=== PATIENT | female | born 1965 | race African-American/Black ===

== ENCOUNTER 2017-03-12 20:48 | Emergency (ER) | payer BC, MEDICAID ==
[~2017-03-12] VITALS: Ht 157.5 cm; Wt 83.9 kg
[2017-03-12] MEDS ORDERED: Norco 5mg/325mg tab PO ONE (21:00)
[2017-03-12 21:05] VITALS: BP 185/98
--- NOTE | 2017-03-12 21:05 | Emergency Room Report ---
History of Present Illness General Chief Complaint: Multiple Trauma/Fall Source: Patient Present Illness HPI At 7 to 7:30 tonight the patient fell down stairs. She jammed her right big toe. The toe swollen and painful at this time. She's not taken any medication so far. She denies a loss of consciousness, hand pain knee pain ankle pain hip pain chest pain. She does have a history of hypertension. Allergies: Coded Allergies: PEANUT (Verified Allergy, Unknown, 03/12/17) Patient History Past Medical History: see triage record Social History Narrative Works for the [employer], Last Menstrual Period: 02/25/17 Now: No Reviewed Nursing Documentation: PMH: Agreed, PSxH: Agreed Nursing Documentation-PMH Hx Hypertension: Yes Review of Systems All Other Systems: negative except mentioned in HPI Physical Exam Vital Signs Date Time Temp Pulse Resp B/P Pulse Ox O2 Delivery O2 Flow Rate FiO2 03/12/17 20:56 98.2 88 15 199/104 99 Room Air Sp02 EP Interpretation: reviewed, normal General Appearance: well appearing, no apparent distress Head: normocephalic, atraumatic Eyes: bilateral eye EOMI, bilateral eye PERRL, bilateral eye normal inspection ENT: hearing grossly normal, normal voice, moist mucus membranes Neck: full range of motion, supple, no bony tend Respiratory: chest non-tender, lungs clear, normal breath sounds, no respiratory distress, speaking full sentences Cardiovascular #1: regular rate, rhythm Gastrointestinal: normal bowel sounds, non tender, soft Musculoskeletal: digits/nails normal, normal range of motion, no calf tenderness, pelvis stable, swelling - R big toe TTP Neurologic: alert, oriented x3, motor strength/tone normal, sensory intact, speech normal, grossly normal Psychiatric: mood/affect normal Skin: no rash, hematoma - big toe R Medical Decision Making Diagnostic Impression: Primary Impression: Toe fracture, right Qualified Codes: S92.424A - Nondisplaced fracture of distal phalanx of right great toe, initial encounter for closed fracture ER Course The patient injured her big toe falling downstairs. Differential includes contusion, fracture and hematoma. X-rays are indicated. In addition the patient be treated with Motrin and [place]. Xray with fracture. Rick tape applied by tech and ortho boot. Neurovasc and position excellent as checked by me. Patient stable for outpatient observation and treatment Other X-Ray Diagnostic Results Other X-Ray Diagnostic Results : X-Ray Ordered: R foot EP Interpretation: Yes Findings: no dislocation, other - fx and sts Number of Views: 3 Last Vital Signs Date Time Temp Pulse Resp B/P Pulse Ox O2 Delivery O2 Flow Rate FiO2 03/12/17 22:25 98.4 96 17 175/96 100 Room Air Status: improved Disposition: HOME, SELF-CARE Condition: Improved Scripts Hydrocodone Bit/Acetaminophen 5-325* (NORCO 5-325*) 1 Each Tablet 1 TAB ORAL Q6H Y for For Pain, #12 TAB 0 Refills Prov: Donavan Green M.D. 03/12/17 Ibuprofen* (MOTRIN*) 600 Mg Tablet 600 MG ORAL Q6H Y for For Pain, #16 TAB Prov: Donavan Green M.D. 03/12/17 Donavan Green M.D. Mar 12, 2017 21:05
[2017-03-12] MEDS ORDERED: IBUPROFEN600 MG ORAL (22:02)
[2017-03-12] MEDS ORDERED: NORCO 5-325 TA1 EACH ORAL (22:02)
[2017-03-12 22:25] VITALS: BP 175/96
--- NOTE | 2017-03-13 11:20 | Diagnostic Imaging Report ---
Indication: TRAUMA, pain status post fall Technique: 3 views right foot Comparison: none Findings: Slight irregularity to the first distal phalanx, doubtful significance but subtle fracture not completely excludable. No other evidence of acute fracture or dislocation. Joint spaces are preserved. There are small plantar calcaneal spurs. Impression: No definite acute bony trauma; cannot completely exclude first distal phalangeal fracture. This agrees with the preliminary interpretation provided by the emergency room physician
== END 2017-03-12 22:25 | disposition home or self-care (01) ==
LOC: EMR 22:09
DX: S92.424A Nondisplaced fracture of distal phalanx of right great toe, initial encounter for closed fracture (principal); W10.9XXA Fall (on) (from) unspecified stairs and steps, initial encounter; Y93.9 Activity, unspecified; Y92.9 Unspecified place or not applicable; Z91.010 Allergy to peanuts; I10 Essential (primary) hypertension
CPT/HCPCS: 99284

== ENCOUNTER 2019-01-22 17:21 | Emergency (ER) | payer MEDICAID, OTHER ==
[~2019-01-22] VITALS: Ht 157.5 cm; Wt 84.8 kg
[~2019-01-22 17:21] MED LIST: IBUPROFEN600 MG ORAL; NORCO 5-325 TA1 EACH ORAL
[2019-01-22 17:34] VITALS: BP 185/99
[2019-01-22] MEDS ORDERED: BENAZEPRIL HCL10 MG ORAL (17:38)
[2019-01-22] MEDS ORDERED: CEPHALEXIN500 MG ORAL (18:13)
[2019-01-22] MEDS ORDERED: BACITRACIN-P28.35 GM TP (18:13)
[2019-01-22] MEDS ORDERED: HYDROCORTISONE30 G2 TP (18:14)
--- NOTE | 2019-01-22 18:14 | Emergency Room Report ---
History of Present Illness General Chief Complaint: Skin Rash/Abscess Source: Patient Present Illness HPI 53-year-old female patient presents the ER complaining of rash on left upper extremity times 1 day. Reports she woke up this morning and noticed pruritic bumps on her left arm. Reports that she saw a bug but does not know if she was bitten by it. Reports she is up-to-date on tetanus vaccinations. Denies fever , chest pain, shortness breath, abdominal pain, vomiting. Denies history of diabetes. Denies any medication for relief of symptoms. Denies other aggravating or relieving factors. Allergies: Coded Allergies: PEANUT (Verified Allergy, Unknown, 03/12/17) Patient History Past Medical History: see triage record Last Menstrual Period: menopause Reviewed Nursing Documentation: PMH: Agreed; PSxH: Agreed Nursing Documentation-PMH Past Medical History: No History, Except For Hx Hypertension: Yes Review of Systems All Other Systems: negative except mentioned in HPI Physical Exam Vital Signs Date Time Temp Pulse Resp B/P (MAP) Pulse Ox O2 Delivery O2 Flow Rate FiO2 01/22/19 17:34 98.1 76 16 185/99 98 Room Air Sp02 EP Interpretation: reviewed, normal General Appearance: well appearing, no apparent distress, alert, GCS 15, non- toxic Head: normocephalic, atraumatic Eyes: bilateral eye normal inspection, bilateral eye PERRL ENT: hearing grossly normal, normal pharynx, no angioedema, normal voice, uvula midline, moist mucus membranes Neck: full range of motion Respiratory: lungs clear, normal breath sounds, no rhonchi, no respiratory distress, no accessory muscle use, no wheezing, speaking full sentences Cardiovascular #1: regular rate, rhythm, no edema Musculoskeletal: back normal, digits/nails normal, gait/station normal, normal range of motion, non-tender Neurologic: alert, oriented x3, responsive, motor strength/tone normal, sensory intact Psychiatric: mood/affect normal Skin: other - Left proximal upper extremity: Erythematous macules and papules with mild edema, no surrounding erythema or edema, no palpable mass, no open wound or drainage, no bite garcia, no red streaking, no lymphedema, excoriations noted Medical Decision Making PA Attestation Dr. Schwartz is my supervising Physician whom patient management has been discussed with. Diagnostic Impression: Primary Impression: Rash and other nonspecific skin eruption ER Course Pt. presents to the ED c/o "bumps" on left arm. Ddx considered but are not limited to atopic dermatitis, bug bite, urticaria, allergic reaction, cellulitis, abscess. Vital signs: are WNL, pt. is afebrile ER COURSE: Physical exam consistent with localized inflammation secondary to likely bug bite. Will cover for possible cellulitis and infection due to patient scratching , will cover with oral abx. Do not scratch, apply cool compresses to affected area. Take Claritin during the day and Benadryl at night for itching symptoms. Followup with PCP and request referral to derm. Wound check in 2-3 days. ER precautions given. DISCHARGE: -Rx given for hydrocortisone cream. Do not apply to face or skin creases. -Rx given for Bacitracin -Rx given for Keflex At this time pt. is stable for d/c to home. Patient resting comfortably, in no acute distress, nontoxic appearing. Care plan and follow up instructions have been discussed with the patient prior to discharge. Patient provided with printed patient care instructions, and any necessary prescriptions. Patient instructed to follow-up with primary care provider in 3 - 5 days. Patient questions asked and answered. Patient reports understanding and agreement to treatment plan. ER precautions given. Patient instructed to return to ER immediately for any new or worsening of symptoms including but not limited to increasing SOB, persistent fever. - Please note that this Emergency Department Report was dictated using [employer] up arranger technology software, occasionally this can lead to erroneous entry secondary to interpretation by the dictation equipment. Last Vital Signs Date Time Temp Pulse Resp B/P (MAP) Pulse Ox O2 Delivery O2 Flow Rate FiO2 01/22/19 17:34 98.1 16 185/99 98 Room Air 01/22/19 17:34 76 Disposition: HOME, SELF-CARE Condition: Stable Scripts Hydrocortisone (Hydrocortisone Cream 2.5%) Y Cream.appl 1 APPLIC TP BID, #28 GM Prov: Edilson Miguel 01/22/19 Cephalexin* (KEFLEX*) 500 Mg Capsule 500 MG ORAL EVERY 12 HOURS, #14 CAP 0 Refills Prov: Edilson Miguel.Reese 01/22/19 Bacitracin/Polymyxin B Sulfate (BACITRACIN-POLYMYXIN OINTMENT) 28.35 Gm Oint...g. 1 APPLIC TP BID, #28 GM Prov: Edilson Miguel 01/22/19 Referrals: [facility]ERR[facility] (PCP) Patient Instructions: Insect Bite, [id number], Rash Additional Instructions: Followup with primary care provider in 3 -5 days. Request referral to dermatology as needed. Do not scratch or itch. Apply cool compresses to affected area. Wash all clothes and bedding. Take medications as directed. Do not apply topical steroid medication to face or skin creases. SE Benadryl drowsiness, do not take prior to drinking, driving, operating heavy machinery. Take Claritin during the day and Benadryl at night for itching symptoms. Patient questions asked and answered. ER precautions given, patient instructed to return to ER immediately for any new or worsening of symptoms. [facility] Edilson Miguel Jan 22, 2019 18:14
[2019-01-22 18:22] VITALS: BP 185/99
--- NOTE | 2019-01-22 18:22 | NUR ---
ER DISCHARGE NOTE: Patient is cleared to be discharged per ERMD, pt is aox4, on room air, with stable vital signs. pt was given dc and prescription instructions, pt was able to verbalize understanding, pt id band removed . pt is able to ambulate with steady gait. pt took all belongings.
== END 2019-01-22 18:22 | disposition home or self-care (01) ==
LOC: EMR 17:57
DX: R21 Rash and other nonspecific skin eruption (principal); I10 Essential (primary) hypertension; Z91.010 Allergy to peanuts
CPT/HCPCS: 99282

== ENCOUNTER 2019-10-05 16:52 | Emergency (ER) | payer OTHER ==
[~2019-10-05] VITALS: Ht 157.5 cm; Wt 85.7 kg
[~2019-10-05 16:52] MED LIST changes: +BACITRACIN-P28.35 GM TP; +BENAZEPRIL HCL10 MG ORAL; +CEPHALEXIN500 MG ORAL; +HYDROCORTISONE30 G2 TP
[2019-10-05] MEDS ORDERED: AMLODIPINE BESY10 MG ORAL (17:10)
[2019-10-05] MEDS ORDERED: HYDROCHLOROTHIA25 MG ORAL (17:10)
[2019-10-05] MEDS ORDERED: ZANTAC150 MG ORAL (17:10)
[2019-10-05 17:15] VITALS: BP 126/56
[2019-10-05 18:09] LABS: APPEARANCE,URINE SLIGHTLY CLOUDY; BILIRUBIN, URINE NEGATIVE (NEGATIVE); COLOR,URINE PALE YELLOW; GLUCOSE, URINE (UA) NEGATIVE (NEGATIVE); KETONES,URINE NEGATIVE (NEGATIVE); LEUKOCYTE ESTERASE ,URINE 1+ (NEGATIVE); NITRITE,URINE NEGATIVE (NEGATIVE); PH,URINE 5 (4.5-8.0); PROTEIN,URINE NEGATIVE (NEGATIVE); UROBILINOGEN,URINE NORMAL MG/DL (0.0-1.0)
[2019-10-05 18:41] LABS: BASOPHILS % (AUTO) 2.5 % (0.0-2.0); EOSINOPHILS % (AUTO) 5.2 % (0.0-3.0); HEMATOCRIT 43.2 % (37.0-47.0); HEMOGLOBIN 14.3 G/DL (12.0-16.0); MEAN CORPUSCULAR VOLUME 84 FL (80-99); MONOCYTES % (AUTO) 4.7 % (1.0-10.0); NEUTROPHILS % (AUTO) 52.7 % (45.0-75.0); PLATELET COUNT 320 K/UL (150-450); RED BLOOD COUNT 5.17 M/UL (4.20-5.40); RED CELL DISTRIBUTION WIDTH 11.1 % (11.6-14.8); WHITE BLOOD COUNT 10.1 K/UL (4.8-10.8)
[2019-10-05 18:51] LABS: ANION GAP 5 mmol/L (5-15); BLOOD UREA NITROGEN 21 mg/dL (7-18); CALCIUM 9.7 MG/DL (8.5-10.1); CARBON DIOXIDE 34 MMOL/L (21-32); CHLORIDE 103 MMOL/L (98-107); CREATININE 1.1 MG/DL (0.55-1.30); POTASSIUM 3.9 MMOL/L (3.5-5.1); SODIUM 142 MMOL/L (136-145)
[2019-10-05 18:56] LABS: ALANINE AMINOTRANSFERASE 24 U/L (12-78); ALBUMIN 4.1 G/DL (3.4-5.0); ALBUMIN/GLOBULIN RATIO 0.9 (1.0-2.7); ALKALINE PHOSPHATASE 81 U/L (46-116); ASPARTATE AMINO TRANSFERASE 18 U/L (15-37); BILIRUBIN,TOTAL 0.3 MG/DL (0.2-1.0)
--- NOTE | 2019-10-05 19:06 | Diagnostic Imaging Report ---
History: CP Exam: XR CXR 1 VIEW Comparison: None available FINDINGS: The lungs are clear. The cardiac and mediastinal contours are within limits. The visualized osseous structures appear within limits. IMPRESSION: No evidence of acute disease.
--- NOTE | 2019-10-05 19:32 | NUR ---
HAND-OFF: Report given to KOKI Manuel.
[2019-10-05] MEDS ORDERED: ONDANSETRON ODT4 MG BC (19:44)
[2019-10-05] MEDS ORDERED: RANITIDINE HCL150 MG ORAL (19:44)
[2019-10-05 20:00] VITALS: BP 120/52
--- NOTE | 2019-10-05 20:00 | NUR ---
ED Nurse Note: pt cleared to be d/c per ermd, pt discharge and aftercare instruction provided w/ prescription, pt education done via discussion and handout, pt advised to follow up with pcp or return to ed if changes in condition, vss, ambulatory w/ steady gait, iv d/c and id band removed, pt verbazlied understanding and agrees with plan, pt accompanied by and left w/ all belongings.
--- NOTE | 2019-10-05 21:20 | Emergency Room Report ---
History of Present Illness General Chief Complaint: General Complaint Source: Patient Present Illness HPI 54-year-old female presents ED for evaluation. States that she was having epigastric pain with vomiting for the last several days. Stopped a few days ago. History of gastritis. Still notes some burning sensation in her upper abdomen. 5 out of 10, nonradiating. Notes nausea, denies vomiting. Also states she is been having some tingling sensation in her left arm for the last few days. Denies chest pain. Denies dizziness. Notes history of hypertension. No other aggravating relieving factors. Denies any other associated symptoms Allergies: Coded Allergies: PEANUT (Verified Allergy, Unknown, 03/12/17) Patient History Past Medical History: HTN, GERD Past Surgical History: none Pertinent Family History: none Social History: Denies: smoking, alcohol use, drug use Last Menstrual Period: MENOPAUSE Now: No Immunizations: UTD Reviewed Nursing Documentation: PMH: Agreed; PSxH: Agreed Nursing Documentation-PMH Hx Hypertension: Yes Review of Systems All Other Systems: negative except mentioned in HPI Physical Exam Vital Signs Date Time Temp Pulse Resp B/P (MAP) Pulse Ox O2 Delivery O2 Flow Rate FiO2 10/05/19 17:03 98.4 71 15 171/102 (125) 95 Room Air Sp02 EP Interpretation: reviewed, normal General Appearance: no apparent distress, alert, GCS 15, non-toxic, obese Head: normocephalic, atraumatic Eyes: bilateral eye normal inspection, bilateral eye PERRL ENT: hearing grossly normal, normal pharynx, no angioedema, normal voice Neck: full range of motion, supple/symm/no masses Respiratory: chest non-tender, lungs clear, normal breath sounds, speaking full sentences Cardiovascular #1: regular rate, rhythm, no edema Cardiovascular #2: 2+ carotid (R), 2+ carotid (L), 2+ radial (R), 2+ radial (L) , 2+ dorsalis pedis (R), 2+ dorsalis pedis (L) Gastrointestinal: normal bowel sounds, non tender, soft, non-distended, no guarding, no rebound Rectal: deferred Genitourinary: normal inspection, no CVA tenderness Musculoskeletal: back normal, gait/station normal, normal range of motion, non- tender Neurologic: alert, oriented x3, responsive, motor strength/tone normal, sensory intact, speech normal Psychiatric: judgement/insight normal, memory normal, mood/affect normal, no suicidal/homicidal ideation Reflexes: 3+ bicep (R), 3+ bicep (L), 3+ tricep (R), 3+ tricep (L), 3+ knee (R) , 3+ knee (L) Lymphatic: no adenopathy Medical Decision Making Diagnostic Impression: Primary Impression: Gastritis Qualified Codes: K29.00 - Acute gastritis without bleeding ER Course Hospital Course 54 yo F presents to ED c/o epigastric pain with nausea, tingling in LUE. h/o gastritis and h/o hypertension Differential diagnoses include: gastritis, OR/unstable angina, contusion, muscle strain Clinical course Patient placed on stretcher. After initial history and physical I ordered labs , EKG, chest x-ray. labs reviewed- all electrolytes normal, troponins negative, no leukocytosis, hemoglobin/hematocrit stable EKG - NSR, no acute ischemic changes interpreted by me Chest x-ray-no cardiomegaly, no rib fracture, no pneumothorax, no acute process I discussed findings with patient. Vitals stable. Given normal EKG with negative work-up I believe patient can be discharged to home. Will discharge with prescriptions for Zantac and Zofran. States she has a PMD. I. I feel this is a highly complex case requiring extensive working including EKG/Rhythm strip, Xray/CT/US, Blood/urine lab work, repeat exams while in ED, and administration of strong opiates/narcotics for pain control, admission to hospital or close patient follow up. Diagnosis - gastritis Stable and discharged to home with Rx Zantac, Zofran. Instructed to followup with PMD. Return to ED if symptoms recur or worsen Labs Test 10/05/19 17:55 10/05/19 18:16 Urine Color Pale yellow Urine Appearance Slightly cloudy Urine pH 5 (4.5-8.0) Urine Specific [place] 1.010 (1.005-1.035) Urine Protein Negative (NEGATIVE) Urine Glucose (UA) Negative (NEGATIVE) Urine Ketones Negative (NEGATIVE) Urine Blood 1+ (NEGATIVE) Urine Nitrite Negative (NEGATIVE) Urine Bilirubin Negative (NEGATIVE) Urine Urobilinogen Normal MG/DL (0.0-1.0) Urine Leukocyte Esterase 1+ (NEGATIVE) Urine RBC 0-2 /HPF (0 - 2) Urine WBC 5-10 /HPF (0 - 2) Urine Squamous Epithelial Cells Moderate /LPF (NONE/OCC) Urine Bacteria Moderate /HPF (NONE) White Blood Count 10.1 K/UL (4.8-10.8) Red Blood Count 5.17 M/UL (4.20-5.40) Hemoglobin 14.3 G/DL (12.0-16.0) Hematocrit 43.2 % (37.0-47.0) Mean Corpuscular Volume 84 FL (80-99) Mean Corpuscular Hemoglobin 27.7 PG (27.0-31.0) Mean Corpuscular Hemoglobin Concent 33.2 G/DL (32.0-36.0) Red Cell Distribution Width 11.1 % (11.6-14.8) Platelet Count 320 K/UL (150-450) Mean Platelet Volume 6.4 FL (6.5-10.1) Neutrophils (%) (Auto) 52.7 % (45.0-75.0) Lymphocytes (%) (Auto) 35.0 % (20.0-45.0) Monocytes (%) (Auto) 4.7 % (1.0-10.0) Eosinophils (%) (Auto) 5.2 % (0.0-3.0) Basophils (%) (Auto) 2.5 % (0.0-2.0) Sodium Level 142 MMOL/L (136-145) Potassium Level 3.9 MMOL/L (3.5-5.1) Chloride Level 103 MMOL/L (98-107) Carbon Dioxide Level 34 MMOL/L (21-32) Anion Gap 5 mmol/L (5-15) Blood Urea Nitrogen 21 mg/dL (7-18) Creatinine 1.1 MG/DL (0.55-1.30) Estimat Glomerular Filtration Rate > 60 mL/min (>60) Glucose Level 107 MG/DL (74-106) Calcium Level 9.7 MG/DL (8.5-10.1) Total Bilirubin 0.3 MG/DL (0.2-1.0) Aspartate Amino Transf (AST/SGOT) 18 U/L (15-37) Alanine Aminotransferase (ALT/SGPT) 24 U/L (12-78) Alkaline Phosphatase 81 U/L (46-116) Troponin I 0.000 ng/mL (0.000-0.056) Total Protein 8.8 G/DL (6.4-8.2) Albumin 4.1 G/DL (3.4-5.0) Globulin 4.7 g/dL Albumin/Globulin Ratio 0.9 (1.0-2.7) EKG Diagnostic Results Rate: normal Rhythm: NSR ST Segments: no acute changes ASA given to the pt in ED: No Rhythm Strip Diag. Results EP Interpretation: yes Rhythm: NSR, no PVC's, no ectopy Chest X-Ray Diagnostic Results Chest X-Ray Diagnostic Results : Chest X-Ray Ordered: Yes # of Views/Limited/Complete: 1 View Indication: Chest Pain EP Interpretation: Yes Interpretation: no consolidation, no effusion, no pneumothorax, no acute cardiopulmonary disease Impression: No acute disease Electronically Signed by: Electronically signed by Robby Zaragoza MD Last Vital Signs Date Time Temp Pulse Resp B/P (MAP) Pulse Ox O2 Delivery O2 Flow Rate FiO2 10/05/19 20:00 98.3 70 16 120/52 98 Room Air Status: improved Disposition: HOME, SELF-CARE Condition: Stable Scripts Ondansetron Odt* (ZOFRAN ODT*) 4 Mg Tab.rapdis 4 MG BC EVERY 6 HOURS PRN for Nausea & Vomiting, #20 TAB 0 Refills Prov: Robby Zaragoza MD 10/05/19 Ranitidine Hcl* (ZANTAC*) 150 Mg Tablet 150 MG ORAL TWICE A DAY, #30 TAB Prov: Robby Zaragoza MD 10/05/19 Patient Instructions: Gastritis, Adult, [facility] Robby Zaragoza MD Oct 05, 2019 21:20
--- NOTE | 2019-10-06 16:16 | Cardiology Report ---
APPROVED REPORT EKG Measurement Heart [id number] Normal sinus rhythm Cannot rule out Anterior infarct, age undetermined Abnormal ECG
== END 2019-10-05 20:00 | disposition home or self-care (01) ==
LOC: EMR 17:25
DX: K29.00 Acute gastritis without bleeding (principal); I10 Essential (primary) hypertension; K21.9 Gastro-esophageal reflux disease without esophagitis; Z91.010 Allergy to peanuts; E66.9 Obesity, unspecified; Z68.34 Body mass index [BMI] 34.0-34.9, adult
CPT/HCPCS: 36415; 71045; 80053; 81003; 84484; 85025; 87086; 93005; 99284